=== PATIENT | female | born 2005 | race Two or more races ===

== ENCOUNTER 2025-05-24 12:17 | Outpatient (CLI) | payer OTHER | END 2025-05-24 12:28 | disposition home or self-care (01) | LOC: PRENATAL 12:17 | PROVIDERS: ATTEND Pediatrics | DX: O44.00 Complete placenta previa NOS or without hemorrhage, unspecified trimester (principal); O99.280 Endocrine, nutritional and metabolic diseases complicating pregnancy, unspecified trimester; Z3A.19 19 weeks gestation of pregnancy ==

== ENCOUNTER 2025-08-15 13:29 | Outpatient (CLI) | payer OTHER | END 2025-08-15 14:08 | disposition home or self-care (01) | LOC: PRENATAL 13:29 | PROVIDERS: ATTEND Obstetrics & Gynecology Maternal & Fetal Medicine | DX: O26.843 Uterine size-date discrepancy, third trimester (principal); O36.8130 Decreased fetal movements, third trimester, not applicable or unspecified; Z3A.31 31 weeks gestation of pregnancy ==

== ENCOUNTER 2025-09-12 22:13 | Outpatient (CLI) | payer OTHER ==
[~2025-09-12] VITALS: Ht 160 cm; Wt 83.0 kg
[2025-09-12 21:09] VITALS: BP 116/76
[2025-09-12] MEDS ORDERED: RINGERS SOLUTION,LACTATED 1,000 ML IV SCH (22:45)
[2025-09-12] MEDS ORDERED: PRENATA CHEWAB1 EACH (22:47)
[2025-09-12 23:23] LABS: URINE APPEARANCE Clear; URINE BILIRRUBIN Negative (NEGATIVE); URINE BLOOD Negative; URINE COLOR Yellow; URINE GLUCOSE Negative (NEGATIVE); URINE KETONE Negative (NEGATIVE); URINE LEUKOCYTE Negative; URINE NITRATE Negative; URINE PROTEIN Negative (NEGATIVE); URINE UROBILINOGEN 0.2 E.U./dl
[2025-09-12 23:25] LABS: BASO % 0.4 % (0.1-1.2); EOS # 0.09 (0.04-0.54); EOS % 0.8 % (0.7-7.0); LYMPH # 2.03 (1.18-3.74); LYMPH % 17.4 % (19.3-53.1); MEAN PLATELET VOLUME 12.00 fl (9.4-12.4); MONO # 0.65 (0.24-0.82); MONO % 5.6 % (4.7-12.5); NEUT # 8.82 (1.56-6.13); NEUT % 75.3 % (34.0-71.1); RED CELL DISTRIBUTION WIDTH 14.1 % (11.6-14.4)
[2025-09-12 23:27] LABS: URINE BACTERIA 57.1 uL (0.0-1933); URINE EPITHELIAL CELLS 1.9 uL (0.0-38.8); URINE WBC 1.8 uL (0.0-23.2)
[2025-09-12 23:33] LABS: URINE CAST 0.00 uL (0.0-1.40); URINE RBC 0.4 uL (0.0-20.8)
[2025-09-12 23:42] LABS: INR 0.97
[2025-09-12 23:49] LABS: ALT/SGPT 27.0 U/L (12-78); AST/SGOT 15.0 U/L (15-37); BILIRUBIN TOTAL 0.32 mg/dL (0.3-1.2); BUN CREA RATIO 20.0 (7.0-25.0); CREATININE SERUM 0.44 mg/dL (0.55-1.02); GFR 180.5; GLOBULINA 3.5 G/DL (2.4-3.5); GLUCOSE FASTING 83.0 mg/dL (65-100); OSMOLALITY SERUM 277.0 MOSM/KG (275-295)
[2025-09-12 23:52] VITALS: BP 108/71
[2025-09-13 04:02] VITALS: BP 107/66
[2025-09-13 08:50] VITALS: BP 132/86
[2025-09-13 09:36] VITALS: BP 132/86
== END 2025-09-13 09:56 | disposition home or self-care (01) ==
LOC: OBS/DEL 22:13
PROVIDERS: ATTEND Obstetrics & Gynecology
DX: O47.03 False labor before 37 completed weeks of gestation, third trimester (principal); O26.843 Uterine size-date discrepancy, third trimester; O36.8130 Decreased fetal movements, third trimester, not applicable or unspecified; O26.893 Other specified pregnancy related conditions, third trimester; O36.5930 Maternal care for other known or suspected poor fetal growth, third trimester, not applicable or unspecified; Z3A.33 33 weeks gestation of pregnancy

== ENCOUNTER → 2025-09-20 12:36 | Outpatient (CLI) | payer OTHER ==
[~2025-09-20 12:36] MED LIST: PRENATA CHEWAB1 EACH
== END | disposition home or self-care (01) ==
LOC: PRENATAL 12:36
PROVIDERS: ATTEND Obstetrics & Gynecology Maternal & Fetal Medicine
DX: O36.8130 Decreased fetal movements, third trimester, not applicable or unspecified (principal); O36.5930 Maternal care for other known or suspected poor fetal growth, third trimester, not applicable or unspecified; Z3A.37 37 weeks gestation of pregnancy

== ENCOUNTER 2025-09-25 06:16 | Inpatient (IN) | payer OTHER ==
[~2025-09-25] VITALS: Ht 160 cm; Wt 2.7 kg
[2025-09-25 07:45] VITALS: BP 119/66
[2025-09-25 09:04] LABS: BASO % 0.3 % (0.1-1.2); EOS # 0.05 (0.04-0.54); EOS % 0.5 % (0.7-7.0); LYMPH # 1.74 (1.18-3.74); LYMPH % 15.9 % (19.3-53.1); MEAN PLATELET VOLUME 11.90 fl (9.4-12.4); MONO # 0.58 (0.24-0.82); MONO % 5.3 % (4.7-12.5); NEUT # 8.46 (1.56-6.13); NEUT % 77.4 % (34.0-71.1); RED CELL DISTRIBUTION WIDTH 14.6 % (11.6-14.4)
[2025-09-25] MEDS ORDERED: OXYTOCIN 500 ML IV SCH (09:15)
[2025-09-25 09:22] LABS: URINE APPEARANCE Clear; URINE BILIRRUBIN Negative (NEGATIVE); URINE BLOOD Negative; URINE COLOR Yellow; URINE GLUCOSE Negative (NEGATIVE); URINE KETONE Negative (NEGATIVE); URINE LEUKOCYTE Negative; URINE NITRATE Negative; URINE PROTEIN Negative (NEGATIVE); URINE UROBILINOGEN 0.2 E.U./dl
[2025-09-25 09:23] LABS: INR 0.97
[2025-09-25 09:24] LABS: URINE BACTERIA 9.0 uL (0.0-1933); URINE EPITHELIAL CELLS 1.4 uL (0.0-38.8); URINE RBC 0.4 uL (0.0-20.8)
[2025-09-25 09:25] LABS: URINE CAST 0.00 uL (0.0-1.40); URINE WBC 0.2 uL (0.0-23.2)
[2025-09-25] MEDS ORDERED: RINGERS SOLUTION,LACTATED 1,000 ML IV SCH (09:30)
[2025-09-25 11:31] VITALS: BP 117/64
[2025-09-25 14:39] VITALS: BP 114/64
[2025-09-25] MEDS ORDERED: MORPHINE SULFATE 4 MG/ML VIAL IV ONE (14:45)
[2025-09-25] MEDS ORDERED: OXYTOCIN 10 UNITS/ML VIAL ONE (15:17)
[2025-09-25] MEDS ORDERED: ERYTHROMYCIN BASE OPHT 1GM EACH TUBE OP ONE (15:17)
[2025-09-25 15:24] VITALS: BP 124/68
[2025-09-25] MEDS ORDERED: MORPHINE SULFATE 4 MG/ML VIAL IV SCH (17:00)
[2025-09-25] MEDS ORDERED: KETOROLAC TROMETHAMINE 60 MG VIAL IM ONE (18:25)
[2025-09-25 20:26] VITALS: BP 120/70
[2025-09-25] MEDS ORDERED: KETOROLAC TROMETHAMINE 60 MG VIAL IM NR (23:00)
[2025-09-26] VITALS: BP 128/75
[2025-09-26] MEDS ORDERED: OxyCODONE HCL 5 MG TABLET (ROXICODONE) PO SCH (05:00)
[2025-09-26 06:19] LABS: BASO % 0.4 % (0.1-1.2); EOS # 0.07 (0.04-0.54); EOS % 0.7 % (0.7-7.0); LYMPH # 1.98 (1.18-3.74); LYMPH % 18.6 % (19.3-53.1); MEAN PLATELET VOLUME 11.90 fl (9.4-12.4); MONO # 0.67 (0.24-0.82); MONO % 6.3 % (4.7-12.5); NEUT # 7.85 (1.56-6.13); NEUT % 73.6 % (34.0-71.1); RED CELL DISTRIBUTION WIDTH 14.5 % (11.6-14.4)
[2025-09-26] MEDS ORDERED: DOCUSATE SODIUM 100MG CAP PO SCH (09:00)
[2025-09-26] MEDS ORDERED: SIMETHICONE 125 MG CAPSULE PO SCH (09:00)
[2025-09-26] MEDS ORDERED: PNV,CALCIUM 72/IRON/FOLIC ACID 1 TAB TABLET PO SCH (09:00)
[2025-09-26 10:12] VITALS: BP 109/67; O2SAT 98
[2025-09-26 17:16] VITALS: BP 111/76
[2025-09-27 00:26] VITALS: BP 103/68
[2025-09-27 08:55] VITALS: BP 103/66
== END 2025-09-27 12:49 | disposition home or self-care (01) | DRG 788 ==
LOC: LDR 06:16 → O/R 16:11 → OB/GYN 17:36
PROVIDERS: ADMIT Obstetrics & Gynecology; ATTEND Obstetrics & Gynecology
PROC: 4A1HXCZ Monitoring of Products of Conception, Cardiac Rate, External Approach (ICD-10-PCS; 2025-09-25)
PROC: 10D00Z1 Extraction of Products of Conception, Low, Open Approach (ICD-10-PCS; principal; 2025-09-25 15:00)
DX: O36.5930 Maternal care for other known or suspected poor fetal growth, third trimester, not applicable or unspecified (principal); Z3A.37 37 weeks gestation of pregnancy; Z37.0 Single live birth